=== PATIENT | female | born 1980 | race Two or more races ===

== ENCOUNTER 2017-10-19 01:34 | Emergency (ER) | payer SELFPAY ==
--- NOTE | 2017-10-19 02:03 | ED Physician Chart ---
Medical Clearance HPI - General Chief complaint: Medical Clearance Stated complaint: OK TO BOOK Time Seen by Provider: 10/19/17 01:40 Source: police (POLICE) Mode of arrival: ambulatory Limitations: no limitations - History of Present Illness HPI Narrative: THIS PATIENT WAS BIB THE POLICE FOR OK TO BOOK WITH A HISTORY OF STRESS, FIBROMYALGIA, LEFT ANKLE PAIN. complaint: medical clearance requested Onset (ago): minute(s) Reason for Medical Clearance: intoxication, medical condition, psychiatric condition Place: street Alleged Intoxication: Yes (SMELLS LIKE ALCOHOL) Compliant with Home Medications: Yes Traumatic Symptoms: denies traumatic injury Associated Symptoms: other (NONE) Treatments Prior to Arrival: none Home medications: Home Medications Medication Instructions Recorded Confirmed NK [No Home Meds] 10/19/17 10/19/17 Allergies/Adverse reactions: Allergies Allergy/AdvReac Type Severity Reaction Status Date / Time No Known Allergies Allergy Verified 10/19/17 01:49 Review of Systems Constitutional: Denies: 2, 3 Eyes: Reports: Other (CONTACTS). Denies: Eye Pain, Eye Discharge ENT ED: Denies: Ear Pain, Throat Pain Cardiovascular: Denies: Chest Pain, Palpitations Respiratory: Denies: 2, 3 Gastrointestinal: Denies: Abdominal Pain, Nausea Genitourinary: Denies: Urgency, Dysuria Musculoskeletal: Denies: Back Pain, Joint Swelling Integumentary: Denies: Rash, Lesions Neurological: Denies: Headache, Weakness Psychiatric: Reports: Anxiety (ANXIETY AND STRESS). Denies: Depression Endocrine: Denies: 2, 3 Hematological/Lymphatic: Denies: Easy Bleeding, Easy Bruising Past Medical History - Past Medical History Source: Unable To Obtain Medical history: Reports: Fibromyalgia Surgical history: Reports: Other (LEFT ANKLE SURGERY) Psychiatric history: Reports: Anxiety, Depression - Social History Exposure to secondhand smoke: Yes Alcohol use: Reports: Occasionally Last drink: just [place] Drug use: Reports: Unknown Family Medical History - Family Member Mother History Unknown: Yes Ethnicity: Living Status: Still Living Other Medical History: PTSD, ANXIETY, DEPRESSION Physical Exam - General Limitations: no limitations General appearance: alert, appears intoxicated - Head Head exam: atraumatic - Eye Eye exam: Present: normal appearance - ENT ENT exam: normal exam - Expanded ENT Exam External ear exam: Present: normal external inspection - Neck Neck exam: Present: normal inspection - Respiratory Respiratory exam: Present: normal lung sounds bilaterally - Cardiovascular Cardiovascular exam: Present: regular rate, normal rhythm - Abdominal Exam Abdominal exam: Present: soft - Rectal Exam Rectal exam: Present: deferred - External exam: Present: normal external exam - Expanded Exam OB exam: Present: deferred - Extremities Exam Extremities exam: Present: joint swelling (LEFT ANKLE) - Expanded Lower Extremity Exam Ankle exam: Present: tenderness (LEFT ANKLE AND POST OP SCAR NOTED), swelling Foot/toe exam: Present: normal inspection Neurovascular/Tendon exam: Present: normal capillary refill - Back Exam Back exam: Present: normal inspection - Neurological Exam Neurological exam: Present: alert, oriented X3, CN II-XII intact, normal gait - Psychiatric Psychiatric exam: Present: normal affect, anxious - Skin Skin exam: Present: warm, dry, intact, normal color Course Vital Signs Temp 98.1 F 10/19/17 01:35 HR 82 10/19/17 01:35 RR 18 10/19/17 01:35 BP 131/71 10/19/17 01:35 O2 Sat % 98 10/19/17 01:35 Temp 98.1 F 10/19/17 01:35 HR 82 10/19/17 01:35 RR 18 10/19/17 01:35 BP 131/71 10/19/17 01:35 O2 Sat % 98 10/19/17 01:35 Medical Clearance - Lab Data Lab results reviewed: Yes I reviewed the patient's lab results. Result diagrams: 10/19/17 02:09 10/19/17 02:09 Critical Care Time Critical Care Time: No Disposition Clinical Impression: Intoxication Disposition: Senior Care/Detention Condition: Stable Instructions: Fibromyalgia Additional Instructions: OK TO BOOK Forms: Detention Clearance
[2017-10-19 02:17] LABS: % BASOPHILS 0.2 % (0.0-2.0); % EOSINOPHILS 0.7 % (0.0-5.0); % LYMPHOCYTES 29.6 % (20.0-50.0); % MONOCYTES 1.6 % (2.0-10.0); % NEUTROPHILS 67.9 % (40.0-80.0); EOSINOPHILE ABSOLUTE 0.1 Th/cmm (0.1-0.4); HEMATOCRIT 47.4 % (41.0-60); LYMPHOCYTE ABSOLUTE 2.6 Th/cmm (1.5-3.0); MEAN CELL VOLUME 88.9 fl (81-100); MEAN CORPUSCULAR HGB CONC 33.7 pg (28.0-36.0); MEAN PLATELET VOLUME 7.2 fl; MONOCYTE ABSOLUTE 0.1 Th/cmm (0.3-1.0); PLATELET COUNT 324 Th/cmm (150-400); RED BLOOD COUNT 5.33 Mil/cmm (3.80-5.10); RED CELL DISTRIBUTION WIDTH 12.2 % (11.5-20.0); WHITE BLOOD COUNT 8.8 Th/cmm (4.8-10.8)
[2017-10-19 02:19] LABS: URINE MICROSCOPIC INDICATED? YES; URINE SOURCE CLEAN C
[2017-10-19 02:27] LABS: URINE BILIRUBIN NEGATIVE (NEGATIVE); URINE BLOOD TRACE (NEGATIVE); URINE GLUCOSE (UA) NEGATIVE (NEGATIVE); URINE KETONE NEGATIVE (NEGATIVE); URINE LEUKOCYTE ESTERASE NEGATIVE (NEGATIVE); URINE NITRATE NEGATIVE (NEGATIVE); URINE PROTEIN NEGATIVE (NEGATIVE); URINE UROBILINOGEN 0.2 E.U./dL (0.2 - 1.0)
[2017-10-19 02:34] LABS: URINE CLARITY CLEAR (CLEAR); URINE COLOR YELLOW
[2017-10-19 02:41] LABS: ALB/GLOB RATIO 1.5 (1.0-1.8); ALBUMIN 4.3 gm/dL (3.7-5.3); ALKALINE PHOSPHATASE 70 U/L (34-104); ANION GAP 10.9 (7.0-16.0); BILIRUBIN,TOTAL 0.4 mg/dL (0.3-1.0); BUN - UREA NITROGEN 8 mg/dL (7-25); CALCIUM SERUM 9.4 mg/dL (8.6-10.3); CHLORIDE 108 mEq/L (98-107); CREATININE - SERUM 0.7 mg/dL (0.6-1.2); GFR AFRICAN-AMERICAN > 60.0 ml/min (>90); GFR NON AFRICAN-AMERICAN > 60.0 ml/min; GLUCOSE 134 mg/dL (70-105); POTASSIUM SERUM 3.9 mEq/L (3.5-5.1); SGOT 19 U/L (13-39); SGPT/ALT 21 U/L (7-52); SODIUM SERUM 138 mEq/L (136-145); TOTAL PROTEIN,SERUM 7.1 gm/dL (6.0-8.3)
[2017-10-19 02:50] LABS: INR 0.95 (0.5-1.4); PROTHROMBIN TIME (TEST) 9.9 SECONDS (9.5-11.5)
[2017-10-19 03:23] LABS: URINE BACTERIA NONE SEEN /hpf (NONE SEEN); URINE EPITHELIAL CELLS NONE SEEN /lpf (FEW); URINE RBC 0-2 /hpf (0-5); URINE WBC NONE SEEN /hpf (0-5)
[2017-10-19 03:48] LABS: AMPHETAMINE URINE NEGATIVE (NEGATIVE); BARBITURATES URINE NEGATIVE (NEGATIVE); BENZODIAZEPINES QUAL URINE NEGATIVE (NEGATIVE); CANNABINOID THC NEGATIVE (NEGATIVE); COCAINE METABOLITE QUAL URINE NEGATIVE (NEGATIVE); METHADONE URINE NEGATIVE (NEGATIVE); METHAMPHETAMINES QUAL URINE NEGATIVE (NEGATIVE); OPIATES (MORPHINE) QUAL. URINE NEGATIVE (NEGATIVE); PHENCYCLIDINE (PCP) URINE NEGATIVE (NEGATIVE); TRICYCLICS (TCA) QUAL. URINE NEGATIVE (NEGATIVE)
== END 2017-10-19 03:40 | disposition still patient (30) ==
LOC: ER 01:34
DX: T50.905A Adverse effect of unspecified drugs, medicaments and biological substances, initial encounter (principal); Z02.89 Encounter for other administrative examinations; Y92.89 Other specified places as the place of occurrence of the external cause
CPT/HCPCS: 36415-UA; 80053-TC; 80307; 80320-TC; 81001-TC; 85025-TC; 85610-TC; Z7502